=== PATIENT | male | born 1945 | race Two or more races ===

== ENCOUNTER 2018-07-19 09:26 | Outpatient (CLI) | payer OTHER | END 2018-07-19 09:45 | disposition home or self-care (01) | LOC: NUCLEAR 09:26 | DX: I80.01 Phlebitis and thrombophlebitis of superficial vessels of right lower extremity (principal); I73.9 Peripheral vascular disease, unspecified; I87.2 Venous insufficiency (chronic) (peripheral) ==

== ENCOUNTER 2018-07-24 08:08 | Outpatient (CLI) | payer OTHER | END 2018-07-24 08:16 | disposition home or self-care (01) | LOC: NUCLEAR 08:08 | DX: I80.01 Phlebitis and thrombophlebitis of superficial vessels of right lower extremity (principal); I73.9 Peripheral vascular disease, unspecified ==